=== PATIENT | female | born 1995 ===

== ENCOUNTER 2018-09-09 15:49 | Emergency (ER) | payer OTHER ==
[2018-09-09 16:24] VITALS: BP 119/67; PULSE 70; RESP 18; TEMP 98.2; O2SAT 99
--- NOTE | 2018-09-09 16:51 | ED PDOC ---
Arrival/HPI - General Chief Complaint: Headache Time Seen by Provider: 09/09/18 16:01 Historian: Patient - History of Present Illness Narrative History of Present Illness (Text): 09/09/18 16:45 23 year old female, , gestation of 9 weeks, and with no significant past medical history, presents to the Emergency Department complaining of generalized headache since 1 week. Patient states persistent symptoms, resolved momentarily after Tylenol, and unfamiliar to symptoms experienced during her previous pregnancies. Patient denies any other associated somatic complaints. Patient denies any fever, chills, nausea, vomiting, diarrhea, abdominal pain, chest pain, shortness of breath, cough, dizziness, neck pain, back pain, vaginal discharge or bleeding or any other complaints. Patient states she has yet to schedule an appointment with her OBGYN. PMD: NONE Time/Duration: 1 week Symptom Onset: Gradual Symptom Course: Unchanged Quality: Aching Activities at Onset: Light Context: Home Past Medical History - Provider Review Nursing Documentation Reviewed: Yes - Infectious Disease Hx of Infectious Diseases: None - Reproductive Menopause: No - Cardiac Hx Cardiac Disorders: No - Genitourinary/Gynecological Hx Genitourinary Disorders: No - Psychiatric Hx Psychophysiologic Disorder: No Hx Substance Use: No - Anesthesia Hx Anesthesia: No Family/Social History - Physician Review Nursing Documentation Reviewed: Yes Family/Social History: Unknown Family HX Smoking Status: Unknown If Ever Smoked Hx Alcohol Use: No Hx Substance Use: No Allergies/Home Meds Allergies/Adverse Reactions: Allergies No Known Allergies Allergy (Verified 09/10/18 08:26) Home Medications: Home Meds Medication Instructions Recorded Confirmed RX: No Known Home Med 09/09/18 09/09/18 Review of Systems - Physician Review All systems were reviewed & negative as marked: Yes - Review of Systems Constitutional: absent: Fevers Eyes: absent: Vision Changes Respiratory: absent: SOB, Cough Cardiovascular: absent: Chest Pain Gastrointestinal: absent: Abdominal Pain, Diarrhea, Nausea, Vomiting Genitourinary Female: absent: Vaginal Bleeding, Vaginal Discharge Musculoskeletal: absent: Back Pain, Neck Pain Neurological: Headache. absent: Dizziness Physical Exam Vital Signs Reviewed: Yes Vital Signs Temp Pulse Resp BP Pulse Ox 09/09/18 15:50 98.2 F 70 18 119/67 99 Temperature: Afebrile Blood Pressure: Normal Pulse: Regular Respiratory Rate: Normal Appearance: Positive for: Well-Appearing, Non-Toxic, Comfortable Pain Distress: None Mental Status: Positive for: Alert and Oriented X 3 - Systems Exam Head: Present: Atraumatic, Normocephalic Pupils: Present: PERRL Extroacular Muscles: Present: EOMI Conjunctiva: Present: Normal Mouth: Present: Moist Mucous Membranes Neck: Present: Normal Range of Motion Respiratory/Chest: Present: Clear to Auscultation, Good Air Exchange. No: Respiratory Distress, Accessory Muscle Use Cardiovascular: Present: Regular Rate and Rhythm, Normal S1, S2. No: Murmurs Abdomen: No: Tenderness, Distention, Peritoneal Signs Back: Present: Normal Inspection Upper Extremity: Present: Normal Inspection. No: Cyanosis, Edema Lower Extremity: Present: Normal Inspection. No: Edema Neurological: Present: GCS=15, CN II-XII Intact, Speech Normal Skin: Present: Warm, Dry, Normal Color. No: Rashes Psychiatric: Present: Alert, Oriented x 3, Normal Insight, Normal Concentration Medical Decision Making ED Course and Treatment: 09/09/18 16:40 Impression: 23 year old female presents to the Emergency Department complaining of generalized headache. Plan: -- Reassess and disposition Prior Visits: Notes and results from previous visits were reviewed. Progress Notes: 09/09/18 16:40 Patient was offered labs, medications, observation and MRI but declines. Patient instead chooses to follow-up with her OBGYN. Patient will be discharged with follow-up instructions. - Scribe Statement The provider has reviewed the documentation as recorded by the Scribe Lissa Becerra. All medical record entries made by the Scribe were at my direction and personally dictated by me. I have reviewed the chart and agree that the record accurately reflects my personal performance of the history, physical exam, medical decision making, and the department course for this patient. I have also personally directed, reviewed, and agree with the discharge instructions and disposition. Disposition/Present on Arrival - Present on Arrival Any Indicators Present on Arrival: No History of DVT/PE: No History of Uncontrolled Diabetes: No Urinary Catheter: No History of Decub. Ulcer: No History Surgical Site Infection Following: None - Disposition Have Diagnosis and Disposition been Completed?: Yes Diagnosis: Headache Disposition: HOME/ ROUTINE Disposition Time: 17:00 Condition: STABLE Discharge Instructions (ExitCare): Headache, Adult Additional Instructions: return to er with worsening symptoms or concerns. you are decling lab tests, ultrasound, possible mri/admission. you are able to return to any er with worsening symptoms at any t slade. Referrals: Bryce Grier MD [Staff Provider] - Follow up with primary Forms: [address] (Welsh)
== END 2018-09-09 17:16 | disposition home or self-care (01) ==
LOC: MERGE 15:49 → ED 15:49
DX: R51 Headache (principal); O26.891 Other specified pregnancy related conditions, first trimester; Z3A.09 9 weeks gestation of pregnancy